=== PATIENT | male | born 1940 ===

== ENCOUNTER 2018-03-09 12:45 | Inpatient (IN) | payer OTHER ==
[~2018-03-09] VITALS: Ht 172.7 cm; Wt 72.6 kg
[2018-03-10] MEDS ORDERED: ATORVASTATIN CA40 MG PO (10:07)
[2018-03-10] MEDS ORDERED: ASA81 MG PO (10:07)
[2018-03-10] MEDS ORDERED: COZAAR100 MG PO (10:07)
[2018-03-10] MEDS ORDERED: DILTIAZEM 24HR240 MG PO (10:08)
[2018-03-24] MEDS ORDERED: DOCUSATE SODIU100 MG PO (10:15)
[2018-03-24] MEDS ORDERED: GABAPENTIN800 MG PO (10:15)
[2018-03-24] MEDS ORDERED: AMOX-CLAV 875-1 EACH PO (10:16)
[2018-03-24] MEDS ORDERED: PERCOCET 5-3251 EACH PO (10:16)
[2018-03-24] MEDS ORDERED: CLONAZEPAM1 MG PO (10:16)
== END 2018-03-24 13:11 | disposition home or self-care (01) | DRG 455 ==
LOC: O/R 03-23 05:00 → SURH 03-23 12:45
PROVIDERS: Orthopaedic Surgery Orthopaedic Surgery of the Spine
PROC: 0SG00J1 Fusion of Lumbar Vertebral Joint with Synthetic Substitute, Posterior Approach, Posterior Column, Open Approach (ICD-10-PCS; 2018-03-23)
PROC: 0SG30AJ Fusion of Lumbosacral Joint with Interbody Fusion Device, Posterior Approach, Anterior Column, Open Approach (ICD-10-PCS; 2018-03-23)
PROC: 0ST40ZZ Resection of Lumbosacral Disc, Open Approach (ICD-10-PCS; 2018-03-23)
PROC: 07DS3ZZ Extraction of Vertebral Bone Marrow, Percutaneous Approach (ICD-10-PCS; 2018-03-23)
PROC: 0SG30A0 Fusion of Lumbosacral Joint with Interbody Fusion Device, Anterior Approach, Anterior Column, Open Approach (ICD-10-PCS; principal; 2018-03-23 12:45)
DX: M47.27 Other spondylosis with radiculopathy, lumbosacral region (principal); M48.07 Spinal stenosis, lumbosacral region; M51.37 Other intervertebral disc degeneration, lumbosacral region; I10 Essential (primary) hypertension; E78.49 Other hyperlipidemia